=== PATIENT | male | born 1985 ===

== ENCOUNTER 2022-02-04 14:59 | Emergency (ER) | payer SELFPAY ==
[2022-02-04 15:16] VITALS: TEMP 97.9; BMI 25.0
[2022-02-04] MEDS ORDERED: FOLIC ACID INJECTION - 1 MG, THIAMINE HCL 100 MG, MULTIVIT INJECTION ADULT 10 ML in SOD... IVPB ONE (15:50)
[2022-02-04 16:46] LABS: BASO % 2.4 % (0-2.0); EOS % 0.3 % (0-4.5); HEMATOCRIT 41.3 % (35.4-49); HEMOGLOBIN 13.5 GM/dL (11.7-16.9); LYMPH % 22.3 % (8-40); MCH 27.2 pg (25.7-33.7); MCHC 32.7 g/dl (32.0-35.9); MEAN CELL VOLUME 83.2 fl (80-96); MEAN PLT VOLUME 7.5 fl (7.5-11.1); PLATELET COUNT 215 10^3/uL (134-434); RBC 4.96 M/mm3 (4.00-5.60); RDW 21.7 % (11.9-15.9); WHITE BLOOD COUNT 4.3 K/mm3 (4.0-10.0)
[2022-02-04 17:03] LABS: CHLORIDE 109 mmol/L (98-107); SODIUM 146 mmol/L (136-145)
[2022-02-04 17:05] LABS: CALCIUM 8.7 mg/dL (8.5-10.1)
[2022-02-04 17:06] LABS: ALBUMIN 4.1 g/dl (3.4-5.0); ANION GAP 11 MMOL/L (8-16); BLOOD UREA NITROGEN 9.1 mg/dL (7-18); CO2 27 mmol/L (21-32); GLUCOSE,RANDOM 104 mg/dL (74-106)
[2022-02-04 17:09] LABS: CREATININE 0.8 mg/dL (0.55-1.3); SGOT/AST 42 U/L (15-37); SGPT/ALT 32 U/L (13-61)
[2022-02-04 17:10] LABS: BILIRUBIN,TOTAL 0.7 mg/dL (0.2-1); TOT PROT 8.2 g/dl (6.4-8.2)
[2022-02-04 17:12] LABS: ALK PHOS 88 U/L (45-117)
[2022-02-04] MEDS ORDERED: chlordiazePOXIDE HCL 25 MG CAPSULE PO ONE (19:56)
[2022-02-04] MEDS ORDERED: chlordiazePOXIDE HCL 25 MG CAPSULE ONE (20:02)
[2022-02-04 20:10] VITALS: BP 134/87; PULSE 83; RESP 20
== END 2022-02-04 20:11 | disposition home or self-care (01) ==
LOC: JER 14:59
PROC: 3E033NZ Introduction of Analgesics, Hypnotics, Sedatives into Peripheral Vein, Percutaneous Approach (ICD-10-PCS; principal; 2022-02-04)
DX: F10.10 Alcohol abuse, uncomplicated (principal)
CPT/HCPCS: 36415; 80053; 82550; 82553; 82962; 85025; 99284-25